=== PATIENT | male | born 1965 | race Caucasian/White ===

== ENCOUNTER 2018-06-26 13:14 | Emergency (ER) | payer MEDICAID ==
[~2018-06-26] VITALS: Ht 165.1 cm; Wt 80.0 kg
[2018-06-26 13:35] VITALS: Ht 165.1 cm; Wt 80.0 kg
[2018-06-26 16:05] VITALS: BP 140/71
== END 2018-06-26 16:05 | disposition home or self-care (01) ==
LOC: ED 13:14
DX: S33.5XXA Sprain of ligaments of lumbar spine, initial encounter (principal); M62.830 Muscle spasm of back; I10 Essential (primary) hypertension; Z88.5 Allergy status to narcotic agent; X58.XXXA Exposure to other specified factors, initial encounter; Y93.89 Activity, other specified; Y92.89 Other specified places as the place of occurrence of the external cause; Y99.0 Civilian activity done for income or pay
CPT/HCPCS: J1885

== ENCOUNTER 2018-10-15 12:21 | Emergency (ER) | payer MEDICAID ==
[~2018-10-15] VITALS: Ht 160 cm; Wt 80.3 kg
[2018-10-15 12:23] VITALS: Ht 160 cm; Wt 80.3 kg
[2018-10-15 13:27] VITALS: BP 134/85
== END 2018-10-15 13:27 | disposition home or self-care (01) ==
LOC: ED 12:21
DX: R07.89 Other chest pain (principal); R05 Cough; I10 Essential (primary) hypertension; Z79.82 Long term (current) use of aspirin; Z79.899 Other long term (current) drug therapy

== ENCOUNTER 2019-01-17 09:30 | Emergency (ER) | payer OTHER ==
[~2019-01-17] VITALS: Ht 165.1 cm; Wt 81.2 kg
[2019-01-17 09:36] VITALS: Ht 165.1 cm; Wt 81.2 kg
[2019-01-17 10:27] LABS: BASOPHIL % 0.7 % (0-2); PLATELET COUNT 253 x10^3mcL (130-400); RED CELL DISTRIBUTION WIDTH 12.7 % (11.5-14.5)
[2019-01-17 10:39] LABS: BILIRUBIN TOTAL 0.48 mg/dL (0.20-1.00); CARBON DIOXIDE 30.2 mmol/L (21-32); CHLORIDE SERUM 102 mmol/L (98-107); SODIUM SERUM 140 mmol/L (136-145); TOTAL PROTEIN, SERUM 7.6 g/dL (6.4-8.2)
[2019-01-17 10:40] LABS: ALBUMIN 3.8 g/dL (3.4-5.0); ALKALINE PHOSPHATASE 83 U/L (46-116); ALT/SGPT 152 U/L (16-63); AMYLASE 53 U/L (25-115); AST/SGOT 113 U/L (15-37); CALCIUM 8.5 mg/dL (8.5-10.1); CREATININE SERUM 0.9 mg/dL (0.7-1.3); GFR1 > 60 mL/min; GLUCOSE SERUM 103 mg/dL (74-106)
[2019-01-17 10:41] LABS: LIPASE 168 IU/L (73-393)
[2019-01-17 11:50] VITALS: BP 135/85
== END 2019-01-17 11:56 | disposition home or self-care (01) ==
LOC: ED 09:30
PROVIDERS: Emergency Medicine
DX: K52.9 Noninfective gastroenteritis and colitis, unspecified (principal); I10 Essential (primary) hypertension; E78.00 Pure hypercholesterolemia, unspecified; Z98.890 Other specified postprocedural states; Z88.5 Allergy status to narcotic agent
CPT/HCPCS: 36415; J1885

== ENCOUNTER 2019-06-04 14:47 | Emergency (ER) | payer OTHER ==
[~2019-06-04] VITALS: Ht 152.4 cm; Wt 80.7 kg
[2019-06-04 14:58] VITALS: BP 151/89; Ht 152.4 cm; Wt 80.7 kg
== END 2019-06-04 17:20 | disposition home or self-care (01) ==
LOC: ED 14:47
DX: S22.32XA Fracture of one rib, left side, initial encounter for closed fracture (principal); I10 Essential (primary) hypertension; E78.00 Pure hypercholesterolemia, unspecified; Z88.5 Allergy status to narcotic agent; Z98.890 Other specified postprocedural states; W18.2XXA Fall in (into) shower or empty bathtub, initial encounter; Y93.89 Activity, other specified; Y92.89 Other specified places as the place of occurrence of the external cause; Y99.8 Other external cause status
CPT/HCPCS: J1885

== ENCOUNTER 2019-10-23 09:56 | Emergency (ER) | payer OTHER ==
[~2019-10-23] VITALS: Ht 165.1 cm; Wt 79.8 kg
[2019-10-23 10:03] VITALS: Ht 165.1 cm; Wt 79.8 kg
[2019-10-23 11:45] LABS: CALCIUM 8.7 mg/dL (8.5-10.1); CARBON DIOXIDE 27.6 mmol/L (21-32); CHLORIDE SERUM 102 mmol/L (98-107); CREATININE SERUM 0.9 mg/dL (0.7-1.3); GFR1 > 60 mL/min; GLUCOSE SERUM 101 mg/dL (74-106); POTASSIUM SERUM 4.3 mmol/L (3.5-5.1); SODIUM SERUM 137 mmol/L (136-145)
[2019-10-23 11:49] LABS: ALBUMIN 3.9 g/dL (3.4-5.0); ALKALINE PHOSPHATASE 63 U/L (46-116); ALT/SGPT 129 U/L (16-63); AMYLASE 61 U/L (25-115); AST/SGOT 106 U/L (15-37); BILIRUBIN TOTAL 0.4 mg/dL (0.20-1.00); LIPASE 174 IU/L (73-393)
[2019-10-23 12:23] LABS: BASOPHIL % 0.7 % (0-2); PLATELET COUNT 267 x10^3mcL (130-400); RED CELL DISTRIBUTION WIDTH 15.4 % (11.5-14.5)
[2019-10-23 13:03] VITALS: BP 129/86
== END 2019-10-23 13:03 | disposition home or self-care (01) ==
LOC: ED 09:56
PROVIDERS: Emergency Medicine
DX: K29.70 Gastritis, unspecified, without bleeding (principal); K74.60 Unspecified cirrhosis of liver
CPT/HCPCS: J1885